=== PATIENT | female | born 1990 | race American Indian/Alaskan Native ===

== ENCOUNTER 2019-10-18 03:19 | Emergency (ER) | payer MEDICAID ==
[2019-10-18 03:31] VITALS: BP 112/74
--- NOTE | 2019-10-18 07:47 | Emergency Department Report ---
Chief Complaint: Rectal Pain Stated Complaint: RECTAL PAIN Time Seen by Provider: 10/18/19 07:34 - HPI History of Present Illness: ON [place] SP DENTAL REPAIR HAS BEEN CONSTIPATED TOOK OTC LAX THEN DEVELOPED HEMORRHOID WHICH BED AND SCARED PT - ROS Review of Systems: NO FEVER NO ABD PAIN AMBULATORY VSS NON TOXIC HEMORRHOID - Exam Vital Signs: Vital Signs 10/18/19 03:26 Temperature 99.0 F Pulse Rate 99 H Respiratory 18 Rate Blood Pressure 112/74 O2 Sat by Pulse 99 Oximetry Physical Exam: A/O S1S2 ABD SNT RECTAL HEMORRHOID LUNGS CTA MSE screening note: Focused history and physical exam performed. Due to findings the following was ordered: NO LIFE THREATENING CONDITION MSE TO PCP Patient discussed with doctor:: [facility] Disposition for MSE Clinical Impression: Acute hemorrhoid, Constipation Disposition: TO HOME OR SELFCARE Is pt being admited?: No Does the pt Need Aspirin: No Condition: Stable Additional Instructions: AVOID NARCOTICS TAKE MOTRIN OR TYLENOL FOR YOUR PAIN OVER THE COUNTER PREP H SUPPOSITORY MORNING AND NIGHT UNTIL HEMORRHOID IMPROVED WARM BATHS OVER THE COUNTER LAXATIVES OK TO USE IF YOU TAKE THE NARCOTIC TAKE COLACE TWICE PER DAY (OVER THE COUNTER) Referrals: MAGDIEL RAMOS MD [Staff Physician] - 3-5 Days Forms: Work/School Release Form(ED) Time of Disposition: 07:45
== END 2019-10-18 07:45 | disposition home or self-care (01) ==
LOC: ED 03:19
DX: K64.8 Other hemorrhoids (principal); K59.00 Constipation, unspecified
CPT/HCPCS: 99282